=== PATIENT | female | born 1975 | race Hispanic/Latino ===

== ENCOUNTER 2016-08-01 13:11 | Outpatient (CLI) | payer MEDICARE, MEDICAID ==
[2016-08-01 13:54] LABS: Alanine Aminotransferase 18 units/L (7-56); Albumin 3.4 g/dL (3.9-5); Alkaline Phosphatase 158 units/L (35-129); Amylase 30 units/L (27-131); Anion Gap 17 mmol/L; BUN/Creatinine Ratio 18.33; Blood Urea Nitrogen 11 mg/dL (7-17); Calcium 9.2 mg/dL (8.4-10.2); Carbon Dioxide 23 mmol/L (22-30); Chloride 99.6 mmol/L (98-107); Glucose 101 mg/dL (65-100); Potassium 3.9 mmol/L (3.6-5.0); Sodium 136 mmol/L (137-145); Total Protein 6.8 g/dL (6.3-8.2)
[2016-08-01 13:57] LABS: Mean Corpuscular HGB Conc 29 % (30-34); Platelet Count 439 K/mm3 (140-440); Red Cell Distribution Width 19.9 % (13.2-15.2); White Blood Count 13.4 K/mm3 (4.5-11.0)
[2016-08-01 13:58] LABS: Hematocrit 30.4 % (30.3-42.9); Hemoglobin 8.9 gm/dl (10.1-14.3); Mean Corpuscular Hemoglobin 17 pg (28-32); Mean Corpuscular Volume 60 fl (79-97)
--- NOTE | 2016-08-01 16:52 | Cat Scan Report ---
CT ABDOMEN AND PELVIS WITH CONTRAST INDICATION: Umbilical hernia. COMPARISON: None similar. FINDINGS: Abdomen and pelvis CT performed following oral contrast and intravenous administration of 100 cc of Omnipaque 300. LUNG BASES: Unremarkable. ABDOMEN: A 1.3 cm peripheral right hepatic hypodensity measures 30 HU, axial image 19, series 2 and approximately 24 HU on the delayed phase, possibly benign though not clearly a simple cyst and new since April [address] images. Subtle diffuse fatty hepatic infiltration may also be present. Left hepatic lobe tip extends into the left upper quadrant. Right hepatic lobe approximately 19 cm in midclavicular length. Cholecystectomy clips. Spleen, pancreas, adrenals, nonaneurysmal abdominal aorta, IVC, kidneys and opacified bowel within normal limits. Mild to moderate colonic stool/possible constipation. No ascites or significant adenopathy. No CT evidence of an umbilical hernia. PELVIS: Urinary bladder and rectosigmoid appear within normal limits. Some endometrial canal fluid noted as also a tampon. Possible physiologic CT appearance of the right adnexa/ovary. Left ovary not clearly visualized. No free fluid or significant adenopathy with some artifact related to patient's body habitus noted. Slight bony degenerative changes. CONCLUSION: No definite acute CT abnormality with few incidental findings, including incompletely characterized hepatic hypodensity (new since 2009), cholecystectomy and possible fatty liver, as described. Thank you for the opportunity to participate in this patient's care.
--- NOTE | 2016-08-04 11:41 | Mammography Report ---
BILATERAL MAMMOGRAM: FINDINGS: The breasts are almost entirely fat (<25% glandular). No mass, distortion, suspicious calcification, or skin change is seen. CAD was utilized. IMPRESSION: Negative mammogram. There is no mammographic evidence of malignancy. RECOMMENDATION: Follow-up per ACS guidelines. BI-RADS CATEGORY: 1 = Negative ACR BI-RADS MAMMOGRAPHIC CODES: 0 = Needs additional imaging evaluation; 1 = Negative; 2 = Benign; 3 = Probably benign; 4 = Suspicious; 5 = Malignant; 6 = Known biopsy-proven malignancy COMMENT: 1. Dense breast tissue, i.e., adenosis, fibrocystic changes, etc., may obscure an underlying neoplasm. 2. Approximately 10% of cancers are not detected with mammography. 3. A negative mammography report should not delay biopsy if a clinically suspicious mass is present. COMMENT: Patient follow-up letters are generated in DEQ.
== END 2016-08-01 13:12 | disposition home or self-care (01) ==
LOC: CT 13:11
PROVIDERS: ATTEND Surgery
DX: Z12.31 Encounter for screening mammogram for malignant neoplasm of breast (principal); K76.89 Other specified diseases of liver; Z90.49 Acquired absence of other specified parts of digestive tract
CPT/HCPCS: 36415; 74177; 80053; 82150; 85027; G0202; Q9967; 77067